=== PATIENT | female | born 1985 | race Caucasian/White ===

== ENCOUNTER 2018-05-20 08:02 | Emergency (ER) | payer OTHER ==
[~2018-05-20] VITALS: Ht 165.1 cm; Wt 49.9 kg
[~2018-05-20 08:02] MED LIST: NON
[2018-05-20] MEDS ORDERED: BACTRIM DS TAB1 EACH PO (08:57)
== END 2018-05-20 09:05 | disposition home or self-care (01) ==
LOC: ER 08:02
DX: L05.01 Pilonidal cyst with abscess (principal)

== ENCOUNTER 2018-12-04 22:03 | Emergency (ER) | payer OTHER ==
[~2018-12-04] VITALS: Ht 154.9 cm; Wt 54.0 kg
[~2018-12-04 22:03] MED LIST changes: +BACTRIM DS TAB1 EACH PO
== END 2018-12-04 23:51 | disposition home or self-care (01) ==
LOC: ER 22:03
DX: L05.91 Pilonidal cyst without abscess (principal)

== ENCOUNTER 2019-02-06 08:04 | Day surgery (SDC) | payer OTHER ==
[2019-02-06] MEDS ORDERED: DOXYCYCLINE HY100 M3 PO (12:04)
[2019-02-06] MEDS ORDERED: Tylenol #3 PO (12:04)
== END 2019-02-06 17:05 | disposition home or self-care (01) ==
LOC: CIR.AMB 08:04
DX: D25.0 Submucous leiomyoma of uterus (principal); N84.0 Polyp of corpus uteri

== ENCOUNTER 2019-09-20 09:24 | Emergency (ER) | payer OTHER ==
[~2019-09-20] VITALS: Ht 154.9 cm; Wt 54.4 kg
[~2019-09-20 09:24] MED LIST changes: +DOXYCYCLINE HY100 M3 PO; +Tylenol #3 PO
[2019-09-20] MEDS ORDERED: MUCINEX D ER 11 EACH (09:40)
[2019-09-20] MEDS ORDERED: DELSYM30 MG/5 M1 PO (13:43)
== END 2019-09-20 13:47 | disposition home or self-care (01) ==
LOC: ER 09:24
DX: R05 Cough (principal)

== ENCOUNTER 2022-06-19 11:00 | Inpatient (IN) | payer OTHER ==
[~2022-06-19] VITALS: Ht 154.9 cm; Wt 52.6 kg
[~2022-06-19 11:00] MED LIST changes: +DELSYM30 MG/5 M1 PO; +MUCINEX D ER 11 EACH
[2022-06-25] MEDS ORDERED: PERCOCET 5-3251 EACH PO (13:07)
[2022-06-25] MEDS ORDERED: IBU800 MG PO (13:07)
[2022-06-25] MEDS ORDERED: COLACE100 MG PO (13:07)
[2022-06-25] MEDS ORDERED: SIMETHICONE80 MG PO (13:07)
== END 2022-06-25 13:20 | disposition home or self-care (01) | DRG 743 ==
LOC: O/R 06-22 05:50 → SURG 06-22 09:00 → OB/GYN 06-22 09:59 → SURG 06-22 11:00 → OB/GYN 06-25 13:20
PROVIDERS: ADMIT Obstetrics & Gynecology; ATTEND Obstetrics & Gynecology
PROC: 0DBW0ZX Excision of Peritoneum, Open Approach, Diagnostic (ICD-10-PCS; 2022-06-22)
PROC: 0UB90ZZ Excision of Uterus, Open Approach (ICD-10-PCS; principal; 2022-06-22 09:00)
DX: D25.0 Submucous leiomyoma of uterus (principal); N80.01 Superficial endometriosis of the uterus; N84.0 Polyp of corpus uteri; G89.18 Other acute postprocedural pain; Z20.822 Contact with and (suspected) exposure to COVID-19